=== PATIENT | female | born 1965 ===

== ENCOUNTER 2016-08-16 05:54 | Day surgery (SDC) | payer OTHER ==
[2016-08-13 11:21] VITALS: BMI 25.8
[2016-08-16] MEDS ORDERED: Lactated Ringer's 1,000 ML IV ONE (06:41)
--- NOTE | 2016-08-16 07:15 | CP.SDSHP ---
Same Day Surgery H & P - History Proposed Procedure: 5th digit arthroplasty with K-wire, exostectomy L foot Pre-Op Diagnosis: pain in 5th toe, left foot - Previous Medical/Surgical History Endocrine/Metabolic: Diabetes Pain: 4.Moderate Pain Previous Surgical History: appendectomy, breast biopsy, lumpectomy, tubal ligation, liposuction, R and L foot surgeries, salivary gland tumor removal - Allergies Allergies: Allergies No Known Allergies Allergy (Verified 08/13/16 11:20) - Physical Exam Vital Signs: Vital Signs 08/16/16 08/16/16 06:22 06:25 Temperature 97.8 F Pulse Rate 96 H 96 H Respiratory 18 Rate Blood Pressure 126/79 O2 Sat by Pulse 97 Oximetry Mental Status: Alert & Oriented x3 Neuro: WNL - {Optional Preform as Required} Integument: WNL Ortho: Other (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 Pt NPO status was confirmed. All Pre-op testing and clearance was in the chart. Pt has exhausted all conservative treatment at this time and is opting for surgical intervention. Pt was explained procedure and post-operative course. All pt's questions were answered to satisfaction. No guarantees were made. Pt understands all risks, benefits and complications of procedure. Pt will follow-up with Short Stay Discharge - Short Stay Discharge Admitting Diagnosis/Reason for Visit: M25.70 M20.42 Disposition: HOME/ ROUTINE Referrals: Kirk Sykes, DPM [Primary Care Provider] - Instructions: RICE Therapy (GEN), Hammertoe Correction (DC) Additional Instructions (Diet, Activity): --Patient in good/stable condition for discharge home. Pt to resume medications per medical reconciliation. Resume regular diet. Please keep dressing clean, dry, & intact to surgical site, use plastic bag over bandage for showering, wear post op shoe at all times when ambulating, call clinic if you see signs of infection (redness, swelling, malodor), please make an appointment to see Dr. Sykes in officewithin 1 week for post-op check. Progress Note/Discharge Note with Instructions: - Patient evaluated bedside in recovery s/p surgical procedure. - After surgical procedure patient in NAD - (+) Void, (+) Appetite - Capillary refill time <3s and NVSI intact. - Patient denies complaints at this time - Post operative instructions and plan of care explained to patient at length. - Pt. acknowledges understanding. - Patient stable for DC per podiatric surgery
--- NOTE | 2016-08-16 07:15 | CP.PCM.PN ---
Subjective - Date & Time of Evaluation Date of Evaluation: 08/16/16 Time of Evaluation: 08:30 - Subjective Subjective: 50 y/o diabetic female presents to [facility] for left foot 5th digit arthroplasty and exostectomy. Patient states she has been feeling moderate to severe pain when wearing shoes. Patient states she has had this pain for approx 7 months. Patient has a past medical history of diabetes. Patient has a past surgical history of a breast biopsy, lumpectomy, salivary gland tumor removal, appendectomy, tubal ligation and multiple foot surgeries. Patient denies any prior adverse reactions to anesthesia. Patient denies any allergies. Patient admits to social EtOH use. Patient denies smoking and says she quit 5 years ago. Patient denies any drug use. Patient will be picked up today after surgical recovery by her sister. Objective - Vital Signs/Intake and Output Vital Signs (last 24 hours): Temp Pulse Resp BP Pulse Ox 97.8 F 96 H 18 126/79 97 08/16/16 06:22 08/16/16 06:25 08/16/16 06:22 08/16/16 06:22 08/16/16 06:22 - Extremities Exam Additional comments: LEFT LOWER EXTREMITY FOCUSED EXAM Vasc: DP/PT 2/4. Temp gradient WNL. CFT < 3 sec x 5. No edema or varicosities. Derm: Mild erythema noted at distal lateral 5th digit. No clinical signs of infection. Neuro: Protective sensation grossly intact Ortho: Adductovarus deformity of the 5th digit. Mild tenderness to palpation of 5th digit. Muscle strength 5/5 in all directions. Assessment and Plan - Assessment and Plan (Free Text) Assessment: 50 y/o diabetic female for left foot 5th digit arthroplasty and exostectomy Plan: Pt was seen and examined in [facility] Pt NPO status was confirmed All Pre-op testing and clearance was in the chart Pt has exhausted all conservative treatment at this time and is opting for surgical intervention Pt was explained procedure and post-operative course All pt's questions were answered to satisfaction No guarantees were made Pt understands all risks, benefits and complications of procedure Pt will follow-up with Dr. Sykes
[2016-08-16] MEDS ORDERED: ceFAZolin 1 GM in Sodium Chloride 0.9% 100 ML IVPB ONE (07:16)
[2016-08-16] MEDS ORDERED: Bupivacaine 0.5% Inj(30mL) IJ ONE (07:16)
[2016-08-16] MEDS ORDERED: Lidocaine 1% Inj (20ml) IJ ONE ×2 (07:16→08:00)
[2016-08-16] MEDS ORDERED: Bupivacaine 0.5% 50 ML IJ ONE (08:00)
--- NOTE | 2016-08-16 08:40 | PCM.SURG1 ---
Surgeon's Initial Post Op Note - Surgeon's Notes Surgeon: Dr. Sykes Glass Setter: Dr. Arguelles PGY-2 Type of Anesthesia: General LMA, Local Anesthesia Administered By: Dr. Ingram Pre-Operative Diagnosis: Left foot 5th digit recurring painful hammertoe Operative Findings: see operative report. materials: .45 k-wire. injectables: 10ccs 1:1 mixture 1% lidocaine plain + 0.5% marcaine plain Post-Operative Diagnosis: same Operation Performed: left foot 5th hammertoe surgical resection with cutting/ removal of soft tissue Specimen/Specimens Removed: none Estimated Blood Loss: EBL {In ML}: 0 Blood Products Given: N/A Drains Used: No Drains Post-Op Condition: Good Date of Surgery/Procedure: 08/16/16 Time of Surgery/Procedure: 08:39
[2016-08-16] MEDS ORDERED: Oxycodone/Acetaminophen 5/325 mg Tab PO PRN ×2 (08:41)
[2016-08-16] MEDS ORDERED: Lactated Ringer's 1,000 ML IV SCH (09:07)
[2016-08-16 10:18] VITALS: RESP 18
[2016-08-16] MEDS ORDERED: Oxycodone/Acetaminophen 5/325 mg Tab PO ONE (10:47)
[2016-08-16 11:29] VITALS: PULSE 100; TEMP 98.4; O2SAT 97
[2016-08-16 11:48] VITALS: BP 101/64
--- NOTE | 2016-08-16 16:48 | RAD ---
Left foot radiographs Indication: s/p left foot surgery Findings: Postsurgical changes with K-wire traversing the 5th digit. The remainder the visualized osseous structures appear unremarkable. No acute displaced fracture or dislocation. Small calcaneal enthesophyte and heel spur. Soft tissue swelling. Impression: Soft tissue swelling. Postsurgical changes with K-wire traversing the 5th digit.
--- NOTE | 2016-08-19 19:15 | OP ---
PROCEDURE DATE: 08/16/2016 PREOPERATIVE DIAGNOSIS: Left foot fifth digit recurrent hammertoe deformity. POSTOPERATIVE DIAGNOSES: Left foot fifth digit recurrent hammertoe deformity. NAME OF PROCEDURE: Left foot fifth digit recurrent hammertoe deformity correction with K-wire fixation. SURGEON: Dr. Sykes. DOCUMENT IMAGING SPECIALIST: Jerrell Arguelles DPM ANESTHESIA: General LMA and local injection. ANESTHESIOLOGIST: Dr. Ingram. INDICATIONS: This patient is a 50-year-old female with the aforementioned diagnoses. The patient is being treated by Dr. Sykes in his office on an outpatient basis where she has exhausted multiple forms of conservative treatment options. The patient desires surgical intervention at this time. All alternatives, benefits, complications and risk of the surgical procedure were explained to the patient at length. The patient verbalized understanding and wished to proceed. All questions were addressed and answered. No guarantees were given nor implied. Consent was signed and n.p.o. status was confirmed prior to bringing the patient to the operating room. OPERATIVE PROCEDURE: The patient was brought to the operating room and placed on the operating table in supine position. Pneumatic ankle tourniquet was applied to the supramalleolar region around the left ankle. After induction of general sedation, a local injection consisting of 10 mL of a 1:1 mixture of 1% lidocaine plain and 0.5% Marcaine was administered in local block fashion. After local anesthesia was achieved, the foot was then prepped and draped in normal sterile manner and the procedure began. PROCEDURE: Left foot fifth digit recurrent hammertoe deformity correction with K-wire fixation. Attention was directed to the dorsal aspect of the fifth digit proximal interphalangeal joint where a linear longitudinal incision was made. The incision was deepened through superficial and subcutaneous tissue utilizing sharp and blunt dissection. Care was taken to retract all vital neurovascular structures throughout the duration of the procedure. It was noted that there was abundance of scar tissue and fibrotic tissue formation within the previous surgical area. Attention was then directed to the base of the intermediate phalanx where a prominent portion of bone was noted at the medial border. All soft tissues were reflected from the intermediate phalanx using a 15 blade. A rongeur and bone rasp was then utilized to resect and smooth down any prominent portions of bone from the intermediate and distal phalanges. The surgical area was then flushed with copious amounts of sterile normal saline. It was noted at this time that all prominent portions of the bone had been adequately resected. Next, utilizing a 0.045 K-wire, it was drilled in a retrograde fashion into the remaining portion of the proximal phalanx to create a guide hole. The K-wire was then drilled in anterograde fashion through the intermediate and distal phalange, exiting the distal tip of fifth digit. With the fifth digit held in correct position, the K-wire was then drilled back into the previously created guide hole of the proximal phalanx holding the fifth digit into corrected position. It was noted at this time that the deformity had been adequately corrected. The surgical area was then again flushed with copious amounts of sterile normal saline. The long extensor tendon was then reapproximated utilizing 3-0 Vicryl suture. The skin was then reapproximated utilizing 4-0 Prolene suture. The K-wire was then bent and cut and the appropriate size cap was placed. Postoperative bandages consisted of betadine soaked Adaptic, DSD, Ana, and an Justin bandage. POSTOPERATIVE CONDITION: The patient tolerated the procedure and anesthesia well with no apparent complications or complaints. The patient was escorted from the OR to the recovery room with vital signs stable and neurovascular status intact. The patient will follow with Dr. Sykes in his office on an outpatient basis. Jerrell Arguelles DPM Kirk Sykes DPM cc: [id number] TT: 08/19/2016 19:14:36 atif GUADARRAMA
== END 2016-08-16 12:08 | disposition home or self-care (01) ==
LOC: H.OPSURG 05:54
PROVIDERS: ATTEND Podiatrist Foot & Ankle Surgery
DX: M20.42 Other hammer toe(s) (acquired), left foot (principal); E11.9 Type 2 diabetes mellitus without complications; E78.5 Hyperlipidemia, unspecified